=== PATIENT | male | born 1945 | race Caucasian/White ===

== ENCOUNTER 2021-03-14 14:24 | Inpatient (IN) | payer OTHER ==
[~2021-03-14] VITALS: Ht 180.3 cm; Wt 61.8 kg
[2021-03-14 14:59] LABS: Hematocrit 22.8 % (37.0-53.0); Hemoglobin 7.3 g/dL (13.5-17.5); Mean Corpuscular HGB 26.1 pg (26.0-34.0); Mean Corpuscular Volume 81 fL (80-100); Mean Platelet Volume 9.9 fL (9.1-12.4); Platelet Count 418 K/mm3 (150-400); RDW Standard Deviation 51.1 fL (35.1-46.3); White Blood Cell Count 15.81 K/mm3 (4.00-11.30)
[2021-03-14 15:16] LABS: Alanine Aminotransfer (ALT/SGP 32 U/L (12-78); Albumin, Blood 1.5 g/dL (3.4-5.0); Albumin/Globulin Ratio 0.3 (0.8-1.8); Alk Phos 99 U/L (50-136); Anion Gap 10 mmol/L (6-16); Aspartate Aminotrans (AST/SGOT 37 U/L (12-37); Bilirubin, Total 0.5 mg/dL (0.1-1.0); Blood Urea Nitrogen 55 mg/dL (8-24); Bun/Creatinine Ratio 49.5 (12.0-20.0); CO2, Blood 26 mmol/L (21-32); Calcium, Blood 8.8 mg/dL (8.5-10.1); Chloride, Blood 97 mmol/L (98-108); Creatinine, Blood 1.11 mg/dL (0.60-1.20); Glomerular Filtration Rate >60 (60-); Glucose, Blood 121 mg/dL (70-99); Potassium, Blood 4.1 mmol/L (3.5-5.5); Sodium, Blood 133 mmol/L (136-145); Total Protein, Blood 6.5 g/dL (6.4-8.2)
[2021-03-14 15:31] LABS: International Normalized Ratio 1.15
[2021-03-14 15:32] LABS: BAND PERCENT MAN 14 % (0-8); BASOPHILS PERCENT MAN 0 % (0-2); EOSINOPHILS PERCENT MAN 0 % (0-6); LYMPHOCYTES ABSOLUTE MAN 0.63 K/mm3 (0.84-5.20); LYMPHOCYTES PERCENT MAN 4 % (21-46); MONOCYTES ABSOLUTE MAN 0.63 K/mm3 (0.16-1.47); MONOCYTES PERCENT MAN 4 % (4-13); NEUTROPHILS ABSOLUTE MAN 14.54 K/mm3 (1.96-9.15); SEG NEUTROPHILS PERCENT MAN 78 % (41-73); TOTAL CELLS COUNTED 100
[2021-03-14] MEDS ORDERED: ACET500 (19:03)
[2021-03-14] MEDS ORDERED: LISI10 PO (19:04)
[2021-03-14] MEDS ORDERED: AMLO10 PO (19:04)
[2021-03-14] MEDS ORDERED: ATOR20 PO (19:04)
[2021-03-14] MEDS ORDERED: MORP15ER PO ×2 (19:05→21:10)
[2021-03-14] MEDS ORDERED: BACL10 PO (19:53)
[2021-03-14] MEDS ORDERED: MOBIC15 MG PO (19:54)
[2021-03-14 19:59] LABS: Hematocrit 23.1 % (37.0-53.0); Hemoglobin 7.3 g/dL (13.5-17.5)
[2021-03-14 20:23] LABS: Influenza A, PCR NEGATIVE (NEGATIVE); Influenza B, PCR NEGATIVE (NEGATIVE); Resp Syncytial Virus, PCR NEGATIVE (NEGATIVE); SARS-Cov-2 (COVID-19) PCR, MMC NEGATIVE (NEGATIVE)
[2021-03-14] MEDS ORDERED: Aspir 8181 MG PO (20:51)
[2021-03-14] MEDS ORDERED: VITAMIN D310 MC4 PO (20:51)
--- NOTE | 2021-03-14 21:23 | NUR ---
PT ARRIVED TO FLOOR FROM ER. PT A/O, LUNGS DIM ON LEFT SIDE, PT REP FEELING SOB, STATES IT IS HARD FOR HIM TO TAKE A DEEP BREATH. SATS >92% ON RA. PT DECLINES SUPPLEMENTAL O2 AT THIS TIME. HR SINUS 90 PER TELE. 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 PT ORIENTED TO ROOM/CALL LIGHT. WILL MONITOR AND TX PER ORDERS.
[2021-03-15 04:58] LABS: BASOPHILS ABSOLUTE AUTO 0.04 K/mm3 (0.00-0.23); BASOPHILS PERCENT AUTO 0 % (0-2); Hematocrit 22.9 % (37.0-53.0); Hemoglobin 7.2 g/dL (13.5-17.5); LYMPHOCYTES ABSOLUTE AUTO 0.68 K/mm3 (0.84-5.20); LYMPHOCYTES PERCENT AUTO 4 % (21-46); MONOCYTES ABSOLUTE AUTO 0.92 K/mm3 (0.16-1.47); MONOCYTES PERCENT AUTO 5 % (4-13); Mean Corpuscular HGB Conc 31.4 g/dL (31.5-36.5); Mean Corpuscular Volume 83 fL (80-100); Mean Platelet Volume 10.5 fL (9.1-12.4); Platelet Count 413 K/mm3 (150-400); RDW Standard Deviation 51.5 fL (35.1-46.3); Red Blood Cell Count 2.77 M/mm3 (4.30-5.90); White Blood Cell Count 17.42 K/mm3 (4.00-11.30)
[2021-03-15 05:36] LABS: EOSINOPHILS ABSOLUTE AUTO 0.03 K/mm3 (0.00-0.68); EOSINOPHILS PERCENT AUTO 0 % (0-6); IMMATURE GRAN ABSOLUTE AUTO 0.08 K/mm3 (0.00-0.10); IMMATURE GRAN PERCENT AUTO 1 % (0-1); NEUTROPHILS ABSOLUTE AUTO 15.67 K/mm3 (1.96-9.15); NEUTROPHILS PERCENT AUTO 90 % (41-73)
[2021-03-15 06:11] LABS: Anion Gap 10 mmol/L (6-16); Blood Urea Nitrogen 47 mg/dL (8-24); Bun/Creatinine Ratio 41.6 (12.0-20.0); CO2, Blood 27 mmol/L (21-32); Calcium, Blood 8.4 mg/dL (8.5-10.1); Chloride, Blood 99 mmol/L (98-108); Creatinine, Blood 1.13 mg/dL (0.60-1.20); Ferritin, Serum 340 ng/mL (26-388); Glomerular Filtration Rate >60 (60-); Glucose, Blood 85 mg/dL (70-99); Iron Serum 12 ug/dL (65-175); Percent Saturation 7.8 % (20.0-50.0); Potassium, Blood 4.2 mmol/L (3.5-5.5); Sodium, Blood 136 mmol/L (136-145); Total Iron Binding Capacity 153 ug/dL (250-450)
--- NOTE | 2021-03-15 07:18 | NUR ---
PT NEW ADMIT THIS SHIFT FOR CHEST TRAUMA. PT VSS SINCE ARRIVING TO FLOOR; SATS >90% ON RA. PT DOES REP MILD SOB AT TIMES AND HAS OCC LOOSE COUGH. PT REP SOB AND COUGH ARE AT BASELINE. PT REP LEFT SHOULDER PAIN, MED W/TYLENOL W/REP RELIEF. PT REPOSITIONING SELF IN BED, PROSTHETIC LEG AT BEDSIDE. PT NPO PER ORDERS, IVF ADNABX CONT. AWAITING POSSIBLE CT PLACEMENT.
--- NOTE | 2021-03-15 08:16 | NUR ---
REPORTS HAVING MILD SOB AND NPC THIS AM, C/O CHRONIC BACK PAIN AND L SIDE PAIN, REFUSED PAIN MEDS AND BACLOFEN OFFERED, STATES HE'S ALLERGIC TO [place] AND HAS "ITCHING" A REACTION AND REQUESTING MORPHINE AND DEMEROL DR. ZURITA NOTIFIED, PT TO HAVE CHEST TUBE PLACED TODAY PER DAY SURGERY, PT AWARE.
--- NOTE | 2021-03-15 12:29 | NUR ---
THE PATIENT WAS BROUGHT TO DAY SURGERY FOR HIS PROCEDURE
--- NOTE | 2021-03-15 15:29 | NUR ---
03/15/21 1529 Barron Kan PATIENT ON SCHEDULED ZOSYN [id number], 1302 03.15.21 CULTURES TAKEN AND SENT TO [place] PATIENT TO PACU WITH CHEST TUBE IN PLACE. 40CC IN CHAMBER UPON LEAVING OR. CONNECTED TO SUCTION IN PACU
[2021-03-15 17:08] LABS: Hematocrit 20.6 % (37.0-53.0); Hemoglobin 6.5 g/dL (13.5-17.5); Mean Corpuscular HGB 26.5 pg (26.0-34.0); Mean Corpuscular HGB Conc 31.6 g/dL (31.5-36.5); Mean Corpuscular Volume 84 fL (80-100); Mean Platelet Volume 10.1 fL (9.1-12.4); Platelet Count 324 K/mm3 (150-400); RDW Coefficient Variation 17.2 % (11.7-14.2); RDW Standard Deviation 53.4 fL (35.1-46.3); Red Blood Cell Count 2.45 M/mm3 (4.30-5.90); White Blood Cell Count 18.72 K/mm3 (4.00-11.30)
--- NOTE | 2021-03-15 17:32 | NUR ---
ARRIVED FROM PACU VIA [facility], AWAKE, A&OX4, DENIES ANY NEED FOR PAIN MEDS AT THIS TIME, DENIES ANY SOB, CHEST TUBE TO L SIDE ON LOW SUCTION, CHEST TUBE SITE DSG INTACT, SMALL AMOUNT OF SHADOWING NOTED ON DSG , NO CREPITUS NOTED, SMALL AMOUNT OF SEROUSANG. DRAINAGE NOTED IN TUBING, MONITOR VS AND ANY CHANGES, REPORT TO SUPERVISOR FINISHING RN.
--- NOTE | 2021-03-15 18:41 | NUR ---
VSS, DENIES ANY NEED FOR PAIN, DENIES ANY SOB, TOLERATED REGUALR DINNER WELL, NO OTHER CHANGES THIS SHIFT.
--- NOTE | 2021-03-15 21:03 | NUR ---
BP: PT BP HYPO 80-50'S. PT ASYMPTOMATIC. DR CORONADO NOTIFIED, IVF AND I/O REVIEWED W/MD. NEW ORDER FOR BOLUS AND INCREASED MIVF REC.
[2021-03-16 05:45] LABS: Hematocrit 20.9 % (37.0-53.0); Hemoglobin 6.5 g/dL (13.5-17.5); Mean Corpuscular HGB 26.1 pg (26.0-34.0); Mean Corpuscular HGB Conc 31.1 g/dL (31.5-36.5); Mean Corpuscular Volume 84 fL (80-100); Mean Platelet Volume 10.3 fL (9.1-12.4); Platelet Count 336 K/mm3 (150-400); RDW Coefficient Variation 17.1 % (11.7-14.2); RDW Standard Deviation 52.3 fL (35.1-46.3); Red Blood Cell Count 2.49 M/mm3 (4.30-5.90); White Blood Cell Count 14.07 K/mm3 (4.00-11.30)
[2021-03-16 06:04] LABS: Anion Gap 10 mmol/L (6-16); Blood Urea Nitrogen 37 mg/dL (8-24); Bun/Creatinine Ratio 37.6 (12.0-20.0); CO2, Blood 24 mmol/L (21-32); Calcium, Blood 7.5 mg/dL (8.5-10.1); Chloride, Blood 102 mmol/L (98-108); Creatinine, Blood 0.98 mg/dL (0.60-1.20); Glomerular Filtration Rate >60 (60-); Glucose, Blood 146 mg/dL (70-99); Potassium, Blood 4.4 mmol/L (3.5-5.5); Sodium, Blood 136 mmol/L (136-145)
--- NOTE | 2021-03-16 07:11 | NUR ---
POD 1 S/P VATS W/CHEST TUBE PLACEMENT. PT BP HYPO EARLY IN SHIFT IMPROVED AFTER NS BOLUS GIVEN; PT REMAINED ASYMPTOMATIC. CHEST TUBE TO LOW SX, W/200ML DARK SS DRNG. PT REP LESS PAIN AND SOB SINCE TUBE PLACED. SITE WNL, NO CREPITUS NOTED, NO CHANGES TO SHADOWING ON DRESSING. SATS >90% ON RA, 1.5LO2 IN PLACE WHILE SLEEPING. IVF CONT PER ORDERS.
--- NOTE | 2021-03-16 09:17 | NUR ---
H/H 6.5/20.9, DR. Cassidy notified. 1 unit of PRBC ordered, waiting on lab to draw type and cross. BP soft this AM, Dr. Cassidy notified at bedside.
--- NOTE | 2021-03-16 11:12 | NUR ---
blood transfusion initiated, VSS on RA BP is soft. 15 min vital signs unchanged from pre-transfusion vital. Lung sounds clear in upper lobe and diminished in lower, unchanged after 15 minutes. Chest tube in place and still outputting red drainage.
--- NOTE | 2021-03-16 15:29 | NUR ---
Pt A&O, pleasant with cares. VSS on RA, titrated to RA, pt BP has been soft throughout the day, MD notified. H/H 6.5/20.9, 1 unit PRBC given. Ferrlecit ordered today and first dose given. Tele: SR 80s. Chest tube in place, it was set up to low wall suction, but the surgeon placed it on water seal. Drainage is red with some thickening throughout the day. LR continued at 125ml/hr. IV abx continued per orders. Pt using urinal independently in bed. Pt has AKA and prosthetic at bedside, although he is bedrest at this time, so had not been out of bed today.
[2021-03-16 17:00] LABS: Hematocrit 24.6 % (37.0-53.0); Hemoglobin 7.8 g/dL (13.5-17.5); Mean Corpuscular HGB 26.3 pg (26.0-34.0); Mean Corpuscular HGB Conc 31.7 g/dL (31.5-36.5); Mean Corpuscular Volume 83 fL (80-100); Mean Platelet Volume 10.5 fL (9.1-12.4); Platelet Count 305 K/mm3 (150-400); RDW Coefficient Variation 16.2 % (11.7-14.2); RDW Standard Deviation 49.4 fL (35.1-46.3); Red Blood Cell Count 2.97 M/mm3 (4.30-5.90); White Blood Cell Count 13.92 K/mm3 (4.00-11.30)
--- NOTE | 2021-03-16 19:16 | NUR ---
75ml out of chest tube on day shift
--- NOTE | 2021-03-17 03:05 | NUR ---
SOB: PT C/O SHORTNESS OF BREATH, SATS 87% ON RA. 2LO2 PLACED, SATS BACK UP >93%. PT C/O FEELING "LIKE I KEEP GETTING KICKED IN THE RIBS" STATING "TAKE IT OUT" "IT NEEDS TO BE LOOSENED" (REFERRING TO CHEST TUBE). PT EDUCATED ON IMPORTANCE OF LEAVING CHEST TUBE INTACT AND NOT PULLING ON TUBING. PT HAS BEEN RESTLESS IN BED, OFTEN TURNING FROM SIDE TO SIDE TONIGHT, REFUSING TO LAY ON BACK. PT NEEDING FREQ EDUCATION R/T CHEST TUBE AND BODY POSITIONING. CALL PLACED TO DR ZELAYA R/T NEW SOB, O2 SATS, AND PT RESTLESSNESS. NEW ORDER FOR PORTABLE CXR REC. MASTER CARPENTER NOTIFIED.
--- NOTE | 2021-03-17 03:38 | NUR ---
XRAY COMPLETED. DR ZELAYA NOTIFIED. PT REP LESS SOB SINCE O2 PLACED, CONT TO C/O PAIN IN LEFT RIB
--- NOTE | 2021-03-17 03:49 | NUR ---
CHEST TUBE: IMAGING RESULTS REVIEWED W/DR ZELAYA. PER , TUBE STILL IN PLACE. PLAN TO AWAIT CT PREVIOUSLY ORDERED FOR THIS AM. NEW ORDER FOR 1X DOSE IV DILAUDID.
--- NOTE | 2021-03-17 06:14 | NUR ---
PT WAS RESTLESS THRU THE NIGHT. C/O HIP PAIN ONCE, MORPHINE WAS GIVEN TWICE. LATER ON THE SHIFT HE WAS TURNING BACK AND FORTH. STARTED TO HAVE PAIN ON LEFT SIDE OF RIBS AND HARD TIME TO BREATH, O2 SATS 87% ON RA. . PLACED ON O2 2L, BREATHING IMPROVED. ORDERED AN XR. DILAUDED WAS GIVEN ONCE WITH LITTLE IMPROVED BUT PT IS MORE AT [place]. PT PULLED IV OUT AND A NEW IV WAS PLACED. URINE OUTPUT IS IMPROVED.
[2021-03-17 09:04] LABS: Hematocrit 26.7 % (37.0-53.0); Hemoglobin 8.3 g/dL (13.5-17.5); Mean Corpuscular HGB 26.2 pg (26.0-34.0); Mean Corpuscular HGB Conc 31.1 g/dL (31.5-36.5); Mean Corpuscular Volume 84 fL (80-100); Mean Platelet Volume 10.8 fL (9.1-12.4); NRBC ABSOLUTE 0.02 K/mm3 (0.00-0.02); NRBC Auto 0.1 /100 WBC (0.0-0.2); Platelet Count 322 K/mm3 (150-400); RDW Coefficient Variation 16.5 % (11.7-14.2); RDW Standard Deviation 51.9 fL (35.1-46.3); Red Blood Cell Count 3.17 M/mm3 (4.30-5.90); White Blood Cell Count 16.47 K/mm3 (4.00-11.30)
[2021-03-17 09:21] LABS: Anion Gap 9 mmol/L (6-16); Blood Urea Nitrogen 34 mg/dL (8-24); Bun/Creatinine Ratio 34.3 (12.0-20.0); CO2, Blood 26 mmol/L (21-32); Calcium, Blood 8.1 mg/dL (8.5-10.1); Chloride, Blood 103 mmol/L (98-108); Creatinine, Blood 0.99 mg/dL (0.60-1.20); Glomerular Filtration Rate >60 (60-); Glucose, Blood 100 mg/dL (70-99); Potassium, Blood 3.8 mmol/L (3.5-5.5); Sodium, Blood 138 mmol/L (136-145); Vancomycin, Trough 9.4 ug/mL (5.0-10.0)
--- NOTE | 2021-03-17 18:19 | NUR ---
CHEST TUBE REMAINS IN PLACE, WITH 60ML OUTPUT THIS SHIFT. LS REMAINS DIM, SEE ASSESSMENT. PT RECEIEVED ZOSYN, NS @ 100ML/HR, AND IRON TODAY. PT ALERT, BECOMES MORE CONFUSED AT THE END OF THE SHIFT, HE IS OTHERWISE PLEASANT AND COOPERATIVE. Hgb 8.3 THIS AM. VANCOMYCIN WAS D/C TODAY. CHEST TUBE REMAINS TO WATER SEAL. VSS. PT REPORTS SOB HAS RESOLVED. DENIES CP
--- NOTE | 2021-03-18 06:26 | NUR ---
ALERT AND ORIENTED X'S 4. COMPALINED OF HAVING SOB ACCOMPANIED WITH PAIN, MORPHINE 2MG GIVEN IV, EFFECTIVE RELIEF, DENIES SOB OR PAIN. BILATERAL LUNGS CLEAR, LLL WITH CRACKLES. DRESSING TO LEFT CHEST TUBE INTACT, RECEIVED 120ML TO WATER CHAMBER. VOIDS WITHOUT DIFFICULTY IN URINAL. SLEPT WELL THROUGH NIGHT. SAFETY MAINTAINED, CALL HERNANDEZ IN REACH.
--- NOTE | 2021-03-18 07:33 | NUR ---
0705-[facility] report from previous shift RN; pt sleeping in bed, bed in lowest position, bed rails up, call light within reach
--- NOTE | 2021-03-18 13:42 | NUR ---
1230- dr agrawal rounding on patient; chest tube removed wnl 1330-PT in room for evaluation
--- NOTE | 2021-03-18 15:23 | NUR ---
SHIFT SUMMARY: PT REMAINED ORIENTED, FORGETFUL AT TIMES, PLEASANT/COOPERATIVE. CHEST TUBE REMOVED TODAY; DRESSING TO L LATERAL CHEST WALL C/D/I. PT HAS EATEN LITTLE THIS SHIFT DESPITE PO INTAKE ENCOURAGEMENT; STATES HE IS "NOT HUNGRY". PT HAS ALSO C/O WEAKNESS. WHILE WORKING WITH PHYSICAL THERAPY, PT DECLINED TO STAND AND PUT ON HIS PROSTHETIC, STATING HE FEELS "WEAK". ENCOURAGED PT TO REST TODAY AND EXPECT TO COMPLETE PHYSICAL THERAPY EVALUATION TOMORROW. PT DENIES PAIN, DENIES N/V, HAS HAD ONE LARGE LIQUID BM THIS SHIFT, HAS VOIDED >600 ML USING URINAL. PT HAS BEEN REORIENTED TO CALL LIGHT. PT CONTINUES WITH IV ABX. LUNGS WITH CRACKLES IN LLL.
[2021-03-18 16:17] LABS: Hematocrit 22.1 % (37.0-53.0); Mean Corpuscular HGB 26.5 pg (26.0-34.0); Mean Corpuscular HGB Conc 31.7 g/dL (31.5-36.5); Mean Corpuscular Volume 84 fL (80-100); Mean Platelet Volume 10.9 fL (9.1-12.4); Platelet Count 250 K/mm3 (150-400); RDW Coefficient Variation 16.8 % (11.7-14.2); RDW Standard Deviation 51.2 fL (35.1-46.3); Red Blood Cell Count 2.64 M/mm3 (4.30-5.90); White Blood Cell Count 11.18 K/mm3 (4.00-11.30)
[2021-03-18 21:14] LABS: Hematocrit 21.7 % (37.0-53.0); Hemoglobin 6.9 g/dL (13.5-17.5)
[2021-03-19 04:44] LABS: Hematocrit 26.9 % (37.0-53.0); Hemoglobin 8.5 g/dL (13.5-17.5); Mean Corpuscular HGB 27.1 pg (26.0-34.0); Mean Corpuscular HGB Conc 31.6 g/dL (31.5-36.5); Mean Corpuscular Volume 86 fL (80-100); Mean Platelet Volume 10.9 fL (9.1-12.4); Platelet Count 252 K/mm3 (150-400); Red Blood Cell Count 3.14 M/mm3 (4.30-5.90); White Blood Cell Count 11.25 K/mm3 (4.00-11.30)
--- NOTE | 2021-03-19 05:38 | NUR ---
ALERT ABLE TO VERBALIZE NEEDS. DRESSING TO LEFT CHEST CLEAN DRY AND ITACT. HGB 6.9, RECEIVED ORDERS FOR 1 UNIT PRBC'S, TOLERATED WELL. RESTING PEACEFULLY IN BED. SAFETY MAINTAINED, CALL HERNANDEZ IN REACH.
--- NOTE | 2021-03-19 07:59 | NUR ---
recvd report from previous RN Conchis, pt awake in bed, getting clothes on, reports he is going home today, that he has scheduled a ride, that he already had breakfast (before the breakfast trays had arrived). Discussed with pt the need for PT evaluation and discharge orders prior to going home. Pt agrees; appears to be confused, no attempts to get OOB at this time. Bed alarm in place
--- NOTE | 2021-03-19 08:42 | NUR ---
on assessment, pt's a/o x 4, appears to have cleared, understands need for physical therapy prior to any discharge. will await PT
--- NOTE | 2021-03-19 09:41 | NUR ---
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 Pt lives off grid in a 24 ft trailer alone. Pt has recently had his [place] from any community[place]. Amarilys reports pt has fallen 3 times since moving there, and she and another close friend have been attempting to get Nicolas to allow them to move him closer to town/friends. Pt has been unwilling to this point. Amarilys and Kaylah (another close friend who manages Nicolas's medications) will continue to encourage pt to allow them to move his trailer to one of their places. [place]. Amarilys reports Nicolas will stay with her during recovery, and will be STRONGLY influenced to move his trailer to her place. Amarilys has been with patient at the [place] doctor appointment where the doctor encouraged pt to move closer to friends. amarilys will continue to speak with Nicolas about this.
--- NOTE | 2021-03-19 10:19 | NUR ---
0283-dr Granados rounding on pt
--- NOTE | 2021-03-19 11:55 | NUR ---
pt has been incontinent of bowel x 2 this shift, during NOC shift, and yesterday day shift x 3.
--- NOTE | 2021-03-19 15:58 | NUR ---
PT SLEEPING, RRR, CONT. TO MONITOR FOR ANY CHANGES.
--- NOTE | 2021-03-19 18:01 | NUR ---
AWAKE, DENIES ANY PAIN OR SOB, EATING DINNER, WORKED WITH PHYS. TX TODAY, NO ACUTE CHANGES THIS SHIFT.
--- NOTE | 2021-03-19 20:41 | NUR ---
PATIENT GOT SELF DRESSED AND SITTING AT SIDE OF BED STATING HE HAS TO GO HOME NOW. THIS NURSE INFORMED PATIENT HE IS UNABLE TO WALK SAFELY AND CONTINUES TO NEED IV ABT'S. PATIENT CONTINUES TO SAY THAT HIS FRIEND JOLIE IS WAITING OUTSIDE. CALLED FRIEND JOLIE, RECEIVED NO ANSWER AND LEFT A MESSAGE. NURSING COMPOUNDING SCALER NOTIFIED, CAME TO BEDSIDE ALONG WITH SECURITY. NOTIFIED DR. KIM, RECEIVED ORDERS AT THIS TIME. WILL CONTINUE TO MONITOR AT THIS TIME.
--- NOTE | 2021-03-20 05:56 | NUR ---
PATIENT HAD INCREASED AGITATION THIS AM AFTER BEING WOKEN UP BY STAFF. PUTTING ON SHIRT CALLING STAFF INAPROPRIATE NAMES AND THAT HES GOING TO SHOOT SOMEONE. PATIENT WAS ABLE TO BE REDIRECTED BACK TO BED. PATIENTS FRIEND JOLIE CALLED IN THIS AM. THIS NURSE EXPLAINED TO JOLIE THAT PATIENT WANTED TO LEAVE FACILTIY LAST NIGHT AND ALSO THIS MORNING. JOLIE STATED IF HE GETS RELEASED TODAY SHE WILL BE HERE TO PICK HIM UP.
--- NOTE | 2021-03-20 06:54 | NUR ---
SLEPT WELL THROUGH NIGHT. MEDICATED FOR PAIN AFTER BEING REPOSITIONED, EFFECTIVE RELIEF. INCONTINENT, JENNIFER CARE PROVIDED. SAFETY MAINTAINED, CALL HERNANDEZ IN [facility].
--- NOTE | 2021-03-20 14:05 | NUR ---
D/C UPDATE I SPOKE WITH JOLIE, THE PT'S FRIEND REGARDING HER OFFER TO BE A CAREGIVER FOR [facility] AFTER D/C. SHE SAID THAT SHE IS WILLING AND HAS INTENTIONS ON MOVING HIS TRAILER TO HER PROPERTY FOR AWHILE UNTIL HE CAN GET STRONGER. SHE STATED THAT SHE HAS A LOT OF SNOW AT HER HOUSE RIGHT NOW BUT HER SISTER NEIL FLETCHER IS WILLING TO PICK HIM UP AND LET HIM STAY WITH HER UNTIL JOLIE IS AVAILABLE. NOTIFIED AT THIS TIME.
[2021-03-20 15:01] LABS: Hematocrit 28.9 % (37.0-53.0); Hemoglobin 9.1 g/dL (13.5-17.5); Mean Corpuscular HGB 27.2 pg (26.0-34.0); Mean Corpuscular HGB Conc 31.5 g/dL (31.5-36.5); Mean Corpuscular Volume 86 fL (80-100); Mean Platelet Volume 10.5 fL (9.1-12.4); Platelet Count 249 K/mm3 (150-400); RDW Coefficient Variation 17.3 % (11.7-14.2); RDW Standard Deviation 52.2 fL (35.1-46.3); Red Blood Cell Count 3.35 M/mm3 (4.30-5.90); White Blood Cell Count 12.96 K/mm3 (4.00-11.30)
--- NOTE | 2021-03-20 17:29 | NUR ---
SHIFT SUMMARY PT HAS BEEN PLEASANT & COOPERATIVE THROUGH THE DAY. DENIES SOB/PAIN. DRSG REMAINS C/D/I. VOIDING WNL, TOLERATING PO INTAKE. SEE PREVIOUS NOTE REGARDING D/C. BED IN LOW POSITION, CALL LIGHT IN REACH.
[2021-03-21 04:17] LABS: Hematocrit 27.3 % (37.0-53.0); Hemoglobin 8.6 g/dL (13.5-17.5); Mean Corpuscular HGB Conc 31.5 g/dL (31.5-36.5); Mean Corpuscular Volume 86 fL (80-100); Mean Platelet Volume 10.3 fL (9.1-12.4); Platelet Count 239 K/mm3 (150-400); RDW Coefficient Variation 17.3 % (11.7-14.2); RDW Standard Deviation 51.5 fL (35.1-46.3); Red Blood Cell Count 3.19 M/mm3 (4.30-5.90); White Blood Cell Count 11.11 K/mm3 (4.00-11.30)
[2021-03-21 04:33] LABS: Anion Gap 6 mmol/L (6-16); Blood Urea Nitrogen 13 mg/dL (8-24); Bun/Creatinine Ratio 19.2 (12.0-20.0); CO2, Blood 29 mmol/L (21-32); Calcium, Blood 8.2 mg/dL (8.5-10.1); Chloride, Blood 100 mmol/L (98-108); Creatinine, Blood 0.68 mg/dL (0.60-1.20); Glomerular Filtration Rate >60 (60-); Glucose, Blood 94 mg/dL (70-99); Potassium, Blood 3.3 mmol/L (3.5-5.5); Sodium, Blood 135 mmol/L (136-145)
--- NOTE | 2021-03-21 04:45 | NUR ---
SHIFT SUMMARY A/OX4. VSS. L CHEST INCISION SITTE COVERED AND IS C/D/I. STAND PIVOT TRANSFER TO BEDSIDE COMMODE WITH ONE STAFF ASSIST. NO ACUTE CHANGES. WILL CONTINUE TO MONITOR AND REPORT TO ONCOMING RN.
--- NOTE | 2021-03-21 12:25 | NUR ---
1222 PT. NOTED SCREAMING " GO AWAY, LEAVE ME ALONE,I'M TRYING TO EAT NOW", WHEN I ENTERED THE ROOM, PT. SAID THAT HIS SISTER ON THE PHONE IS NOT LEAVING HIM ALONE.PT. THEN CALMED DOWN.
[2021-03-22 04:38] LABS: BASOPHILS ABSOLUTE AUTO 0.02 K/mm3 (0.00-0.23); BASOPHILS PERCENT AUTO 0 % (0-2); EOSINOPHILS ABSOLUTE AUTO 0.07 K/mm3 (0.00-0.68); EOSINOPHILS PERCENT AUTO 1 % (0-6); Hematocrit 27.8 % (37.0-53.0); Hemoglobin 8.8 g/dL (13.5-17.5); IMMATURE GRAN PERCENT AUTO 1 % (0-1); LYMPHOCYTES PERCENT AUTO 8 % (21-46); MONOCYTES ABSOLUTE AUTO 0.51 K/mm3 (0.16-1.47); MONOCYTES PERCENT AUTO 5 % (4-13); Mean Corpuscular HGB 27.5 pg (26.0-34.0); Mean Corpuscular HGB Conc 31.7 g/dL (31.5-36.5); Mean Corpuscular Volume 87 fL (80-100); Mean Platelet Volume 10.7 fL (9.1-12.4); NEUTROPHILS PERCENT AUTO 86 % (41-73); Platelet Count 235 K/mm3 (150-400); RDW Standard Deviation 53.6 fL (35.1-46.3)
[2021-03-22 05:11] LABS: Anion Gap 8 mmol/L (6-16); Blood Urea Nitrogen 12 mg/dL (8-24); Bun/Creatinine Ratio 16.5 (12.0-20.0); CO2, Blood 27 mmol/L (21-32); Calcium, Blood 8.3 mg/dL (8.5-10.1); Chloride, Blood 99 mmol/L (98-108); Creatinine, Blood 0.73 mg/dL (0.60-1.20); Glomerular Filtration Rate >60 (60-); Glucose, Blood 94 mg/dL (70-99); Potassium, Blood 3.6 mmol/L (3.5-5.5); Sodium, Blood 134 mmol/L (136-145)
--- NOTE | 2021-03-22 05:29 | NUR ---
SHIFT SUMMARY A/OX4. VSS. NO PAIN REPORTED THIS SHIFT. DRESSING C/D/I. ONE PERSON ASSIST, STAND PIVOT TO COMMODE. VOIDING AND PASSING STOOL THIS SHIFT. RESTED WELL. PLEASANT AND COOPERATIVE.
--- NOTE | 2021-03-22 10:26 | NUR ---
[address] CORONADO'S VOICEMAL REGARDING PT'S REQUEST TO BE DISCHARGED NOW.
--- NOTE | 2021-03-22 12:56 | NUR ---
DISCHARGED PT. VIA THE WHEELCHAIR THROUGH ER EXIT , AOX4, IV ACCESS REMOVED , DISCHARGE INSTRUCTIONS GIVEN, PT. VERBALIZED UNDERSTANDING, CAREGIVER/PROVIDER JOLIE TRANSPORTED PT. TO HOME.
== END 2021-03-22 12:52 | disposition home or self-care (01) | DRG 163 ==
LOC: ER 14:24 → ERHOLD 18:15 → SURS 18:15
PROVIDERS: Emergency Medicine; Hospitalist; Internal Medicine; Pharmacist; ADMIT Surgery
PROC: 0W9B4ZZ Drainage of Left Pleural Cavity, Percutaneous Endoscopic Approach (ICD-10-PCS; 2021-03-15)
PROC: 0BNL4ZZ Release Left Lung, Percutaneous Endoscopic Approach (ICD-10-PCS; 2021-03-15)
PROC: 30233N1 Transfusion of Nonautologous Red Blood Cells into Peripheral Vein, Percutaneous Approach (ICD-10-PCS; principal; 2021-03-16)
DX: J86.9 Pyothorax without fistula (principal); J15.6 Pneumonia due to other Gram-negative bacteria; J15.4 Pneumonia due to other streptococci; D62 Acute posthemorrhagic anemia; E87.1 Hypo-osmolality and hyponatremia; I10 Essential (primary) hypertension; Z66 Do not resuscitate; E11.9 Type 2 diabetes mellitus without complications; D63.8 Anemia in other chronic diseases classified elsewhere; E78.5 Hyperlipidemia, unspecified; G89.29 Other chronic pain; Z20.822 Contact with and (suspected) exposure to COVID-19; E86.1 Hypovolemia; E86.0 Dehydration; M54.9 Dorsalgia, unspecified; G31.84 Mild cognitive impairment of uncertain or unknown etiology; H40.9 Unspecified glaucoma; Z95.1 Presence of aortocoronary bypass graft; Z88.5 Allergy status to narcotic agent; Z88.8 Allergy status to other drugs, medicaments and biological substances; Z89.512 Acquired absence of left leg below knee; Z98.49 Cataract extraction status, unspecified eye; Z95.2 Presence of prosthetic heart valve; Z79.899 Other long term (current) drug therapy; Z79.82 Long term (current) use of aspirin
CPT/HCPCS: 0241U; 36415; 36430; 71045; 71250; 71260; 74177; 80048; 80053; 80202; 82607; 82728; 82746; 83540; 83550; 83605; 83880; 84145; 84484; 85014; 85018; 85025; 85027; 85610; 86850; 86900; 86901; 86920; 86923; 87040; 87070; 87075; 87205; 93005; 93010; 94760; 96365; 96375; 97162; 97530; 97530-CQ; 99285-25; A9270; J0295; J1100; J1170; J1650; J2060; J2250; J2270; J2370; J2405; J2543; J2704; J2916; J3370; J7030; J7120; P9016; Q9967